=== PATIENT | male | born 1955 | race Caucasian/White ===

== ENCOUNTER 2017-05-27 11:43 | Emergency (ER) | payer OTHER ==
[~2017-05-27] VITALS: Ht 177.8 cm; Wt 81.8 kg
[2017-05-27 11:45] VITALS: BP 118/64; PULSE 70; RESP 16; TEMP 98.5; O2SAT 99
[2017-05-27 15:14] VITALS: BP 137/80; PULSE 58; O2SAT 99
[2017-05-27] MEDS ORDERED: LYRI75CA PO (15:27)
[2017-05-27] MEDS ORDERED: ATOR20TA15 PO (15:27)
[2017-05-27] MEDS ORDERED: CETI10 PO (15:27)
[2017-05-27] MEDS ORDERED: FLUD.1 PO (15:27)
[2017-05-27] MEDS ORDERED: SERT25TA83 PO (15:27)
[2017-05-27] MEDS ORDERED: HUMALOG SQ (15:27)
[2017-05-27] MEDS ORDERED: GEMF600T PO (15:27)
[2017-05-27] MEDS ORDERED: LEVEMIR SQ (15:27)
--- NOTE | 2017-05-27 15:59 | PD ---
HPI Chief Complaint: Numbness/Tingling Time Seen by Provider: 15:42 Travel History International Travel<30 days: No Contact w/Intl Traveler<30days: No Traveled to known affect area: No History of Present Illness HPI This is a 61-year-old male who reports that he recently moved here from [place]. He has a history of left BKA, currently wheelchair dependent. He is complaining of left proximal arm pain and neck pain. This is been going on for several days. He describes it as a sharp shooting pain with paresthesias primarily in the proximal left arm and shoulder region with associated mild neck pain. He does not recall any specific injury but he does note that he falls quite frequently out of his wheelchair and thinks that maybe he fell and injured his arm. He denies any weakness. He denies any headache, chest pain or shortness of breath. His friend who is at bedside was concerned because he noted some bright red blood in his toilet after a bowel movement. He reports that this is been going on for the past 5 days. Denies any black or tarry stools. He has had approximately 5 episodes of loose watery stools on a nightly basis for the past 2 months. He has not been evaluated for this in the past. Denies any recent antibiotic use, abdominal pain, fevers or chills, weight loss, nausea or vomiting. He is not on any blood thinning medications. He has no local primary care physician. No other complaints at this time. PFSH Past Medical History High Cholesterol: Yes Diabetes: Yes Patient Takes Glucophage: No Musculoskeletal: Yes (Lt BKA, neuropathy) Influenza Vaccination: No Past Surgical History Endocrine Surgery: Yes (lt Kidney) Other Surgery: Yes (skin CA Lt arm) Social History Alcohol Use: No (quit) Tobacco Use: Yes (1 ppd) Substance Use: No Allergies-Medications (Allergen,Severity, Reaction): Coded Allergies: No Known Allergies (Unverified , 05/27/17) Reported Meds & Prescriptions Reported Meds & Active Scripts Active Baclofen 10 Mg Tab 10 Mg PO Q8HR 7 Days Reported Sertraline (Sertraline HCl) 25 Mg Tab 25 Mg PO DAILY Cetirizine (Cetirizine HCl) 10 Mg Tab 10 Mg PO DAILY Humalog Inj (Insulin Human Lispro) 1,000 Unit/10 Ml Vial 2-12 Units SQ ACHS Max dose at bedtime:( )units; sugars < 70,(0)units; sugars 150-199,(2)units; sugars 200-249,(4)units; sugars 250-299,(7)units; sugars 300-349,(10)units; sugars more than 349,(12)units. Levemir Inj (Insulin Detemir) 1,000 unit/ 10 ML Vial 35 Units SQ HS Do not mix with any other Insulin. Fludrocortisone (Fludrocortisone Acetate) 0.1 Mg Tab 0.1 Mg PO BID Gemfibrozil 600 Mg Tab Mg PO BIDAC Take 30 minutes prior to breakfast and dinner. Atorvastatin (Atorvastatin Calcium) 20 Mg Tab 20 Mg PO HS Lyrica (Pregabalin) 75 Mg Cap 75 Mg PO BID Review of Systems Except as stated in HPI: all other systems reviewed are Neg Physical Exam Narrative GENERAL: Well-developed well-nourished male in no acute distress SKIN: Warm and dry. HEAD: Atraumatic. Normocephalic. EYES: Pupils equal and round. No scleral icterus. No injection or drainage. ENT: No nasal bleeding or discharge. Mucous membranes pink and moist. NECK: Trachea midline. No JVD. CARDIOVASCULAR: Regular rate and rhythm. No murmur appreciated. RESPIRATORY: No accessory muscle use. Clear to auscultation. Breath sounds equal bilaterally. GASTROINTESTINAL: Abdomen soft, non-tender, nondistended. Hepatic and splenic margins not palpable. Rectal examination reveals no evidence of external hemorrhoid or anal fissure. He has light brown stool which is heme positive. MUSCULOSKELETAL: Left BKA. There is some tenderness to palpation to left proximal arm with no obvious deformity. The patient maintains full range of motion of the upper extremities. There is no neck tenderness. NEUROLOGICAL: Awake and alert. No obvious cranial nerve deficits. Motor grossly within normal limits. Normal speech. PSYCHIATRIC: Appropriate mood and affect; insight and judgment normal. Data Data Last Documented VS Vital Signs Date Time Temp Pulse Resp B/P (MAP) Pulse Ox O2 Delivery O2 Flow Rate FiO2 05/27/17 15:14 58 137/80 (99) 99 Room Air 05/27/17 11:45 98.5 16 Orders Orders Complete Blood Count With Diff (05/27/17 15:53) Comprehensive Metabolic Panel (05/27/17 15:53) Lipase (05/27/17 15:53) Prothrombin Time / Inr (Pt) (05/27/17 15:53) Act Partial Throm Time (Ptt) (05/27/17 15:53) Iv Access Insert/Monitor (05/27/17 15:53) Sodium Chloride 0.9% Flush (Ns Flush) (05/27/17 16:00) Enteric Path (Stool) (05/27/17 15:53) C Diff Toxin Pcr (05/27/17 15:53) Humerus (Min 2vws) (05/27/17 ) Ct Cerv Spine W/O Contrast (05/27/17 ) Ed Discharge Order (05/27/17 18:15) Acetaminophen (Tylenol) (05/27/17 18:15) Labs Laboratory Tests Test 05/27/17 16:45 05/27/17 17:40 White Blood Count 9.3 TH/MM3 Red Blood Count 4.79 MIL/MM3 Hemoglobin 13.9 GM/DL Hematocrit 41.0 % Mean Corpuscular Volume 85.6 FL Mean Corpuscular Hemoglobin 29.0 PG Mean Corpuscular Hemoglobin Concent 33.9 % Red Cell Distribution Width 13.8 % Platelet Count 139 TH/MM3 Mean Platelet Volume 9.7 FL Neutrophils (%) (Auto) 54.7 % Lymphocytes (%) (Auto) 32.6 % Monocytes (%) (Auto) 8.6 % Eosinophils (%) (Auto) 3.4 % Basophils (%) (Auto) 0.7 % Neutrophils # (Auto) 5.1 TH/MM3 Lymphocytes # (Auto) 3.0 TH/MM3 Monocytes # (Auto) 0.8 TH/MM3 Eosinophils # (Auto) 0.3 TH/MM3 Basophils # (Auto) 0.1 TH/MM3 CBC Comment DIFF FINAL Differential Comment Prothrombin Time 11.9 SEC Prothromb Time International Ratio 1.2 RATIO Activated Partial Thromboplast Time 27.1 SEC Blood Urea Nitrogen 15 MG/DL Creatinine 0.92 MG/DL Random Glucose 155 MG/DL Total Protein 7.0 GM/DL Albumin 3.9 GM/DL Calcium Level 8.9 MG/DL Alkaline Phosphatase 82 U/L Aspartate Amino Transf (AST/SGOT) 21 U/L Alanine Aminotransferase (ALT/SGPT) 26 U/L Total Bilirubin 0.4 MG/DL Sodium Level 140 MEQ/L Potassium Level 3.9 MEQ/L Chloride Level 109 MEQ/L Carbon Dioxide Level 23.8 MEQ/L Anion Gap 7 MEQ/L Estimat Glomerular Filtration Rate 84 ML/MIN Lipase 38 U/L MDM Medical Decision Making Medical Screen Exam Complete: Yes Emergency Medical Condition: Yes Medical Record Reviewed: Yes Differential Diagnosis Anal fissure, external hemorrhoid, internal hemorrhoid, colitis, malabsorption, colonic malignancy, upper GI bleed, polyp Cervical radiculopathy, left arm strain, contusion, DVT Narrative Course The patient does have light brown stool which is heme positive. He has tenderness to palpation in the left proximal arm. Plan is for CT of the cervical spine and left humerus. Basic lab work has been ordered. Stool culture/C. difficile PCR have been ordered however the patient's diarrhea seems to be more of a chronic issue as it has been ongoing for 2 months. The patient's imaging studies reveal degenerative changes in the cervical spine with no acute process. Humerus x-ray is normal. CBC is normal with a hemoglobin of 13.9. CMP reveals a glucose of 155 otherwise unremarkable. C. difficile/stool cultures are pending but C. difficile is unlikely. The patient is hemodynamically stable for outpatient follow-up. Recommended follow-up with a truckman given his age, likely for outpatient colonoscopy. Discussed signs and symptoms weren't returning to the emergency room. He will be discharged with a short course of baclofen to help with his neck pain and radicular symptoms. Diagnosis Primary Impression: Rectal bleeding Additional Impression: Cervical radiculopathy Additional Instructions: Medication as needed. Do not drive or drink alcohol when taking this medication. Follow-up with a truckman to discuss possible outpatient colonoscopy. Return for any acutely new or worsening symptoms. Med/Other Pt SpecificInfo: Prescription(s) given Scripts Baclofen (Baclofen) 10 Mg Tab 10 MG PO Q8HR for 7 Days, TAB 0 Refills Prov: Sandeep Rios MD 05/27/17 Disposition: 01 DISCHARGE HOME Condition: Stable Bradley Lambert May 27, 2017 15:59
[2017-05-27] MEDS ORDERED: SODIUM CHLORIDE 0.9% FLUSH 10 ML FLUSH IV FLUSH PRN (16:00)
--- NOTE | 2017-05-27 16:41 | RADRPT ---
EXAM DATE/TIME: 05/27/2017 16:07 [facility] COMPARISON: No previous studies available for comparison. INDICATIONS : Patient fell 1 week ago landing on left humerus. Left humerus pain and limited ROM. MEDICAL HISTORY : None. SURGICAL HISTORY : None. ENCOUNTER: Initial ACUITY: 1 week PAIN SCORE: 7/10 LOCATION: Left Humerus FINDINGS: Two view examination of the left humerus demonstrates no evidence of fracture or dislocation. Bony m ineralization is normal. The soft tissue structures are intact. Minimal degenerative changes are se en on the olecranon. CONCLUSION: Negative for fracture. Raghu Palmer MD FACR on May 27, 2017 at 16:37 Board Certified Radiologist. This report was verified electronically.
--- NOTE | 2017-05-27 16:53 | RADRPT ---
EXAM DATE/TIME: 05/27/2017 16:11 [facility] COMPARISON: No previous studies available for comparison. INDICATIONS : Left arm numbness, arm pain for 2 days. Recent falls. RADIATION DOSE: 24.75 CTDIvol (mGy) MEDICAL HISTORY : Below the kness left anmutation,left arm skin cancer. SURGICAL HISTORY : Kidney ENCOUNTER: Initial ACUITY: 2 days PAIN SCALE: 5/10 LOCATION: Bilateral neck TECHNIQUE: Volumetric scanning of the cervical spine was performed. Multiplanar reconstructions in the sagittal, coronal and oblique axial planes were performed. Using automated exposure control and adjustment o f the mA and/or kV according to patient size, radiation dose was kept as low as reasonably achievable to obtain optimal diagnostic quality images. DICOM format image data is available electronically f or review and comparison. FINDINGS: VERTEBRAE: Normal vertebral body height. ALIGNMENT: No evidence of subluxation. C2-C3: Anterior osteophytes. The bony spinal canal is normal in size. No evidence of disc bulge or herniati on. The neural foramina are bilaterally patent. C3-C4: Central posterior disc protrusion and right facet arthropathy. No significant central canal or neural foraminal stenosis. C4-C5: Diffuse disc bulge and uncovertebral osteophytes with bilateral facet arthropathy. Central canal narr owing to approximately 8 mm. No significant neural foraminal stenosis. C5-C6: Moderate disc space narrowing with vacuum disc phenomenon. Bilateral facet arthropathy. Posterior dis c osteophyte complex eccentric to the right. Effacement of the anterior right lateral recess with alex tral canal narrowing to approximately 9 mm. Moderate to severe right neural foraminal stenosis second margot to osteophytes. C6-C7: Moderate disc space narrowing with vacuum disc phenomenon. Posterior disc osteophytes eccentric to th e right. Central canal measures 8 mm. Moderate to severe right neural foraminal stenosis. C7-T1: The bony spinal canal is normal in size. No evidence of disc bulge or herniation. The neural forami na are bilaterally patent. CONCLUSION: 1. No acute fracture or subluxation. 2. Multilevel degenerative spondylosis of the cervical spine resulting in multilevel moderate central canal stenosis. 3. Variable neural foraminal stenosis most prominently at C5-7 with moderate to severe right-sided ne ural foraminal stenosis 4. Please see above for detailed description of each level. Malachi Holbrook MD on May 27, 2017 at 16:38 Board Certified Radiologist. This report was verified electronically.
[2017-05-27 17:20] LABS: AUTOMATED NEUTROPHIL # 5.1 TH/MM3 (1.8-7.7); BASOPHIL # 0.1 TH/MM3 (0-0.2); BASOPHIL % 0.7 % (0.0-2.0); EOSINOPHIL # 0.3 TH/MM3 (0-0.4); EOSINOPHIL % 3.4 % (0.0-4.0); HEMOGLOBIN 13.9 GM/DL (13.0-17.0); LYMPH % 32.6 % (9.0-44.0); MEAN CELL VOLUME 85.6 FL (80.0-100.0); MEAN CORPUSCULAR HGB CONC 33.9 % (32.0-36.0); MEAN PLATELET VOLUME 9.7 FL (7.0-11.0); MONO % 8.6 % (0.0-8.0); MONOCYTE # 0.8 TH/MM3 (0-0.9); NEUT % 54.7 % (16.0-70.0); PLATELET COUNT 139 TH/MM3 (150-450); RED BLOOD COUNT 4.79 MIL/MM3 (4.50-5.90); RED CELL DISTRIBUTION WIDTH 13.8 % (11.6-17.2); WHITE BLOOD COUNT 9.3 TH/MM3 (4.0-11.0)
[2017-05-27 17:25] LABS: INTERNATIONAL NORMALIZED RATIO 1.2 RATIO; PROTHROMBIN TIME - PATIENT 11.9 SEC (9.8-11.6)
[2017-05-27 17:40] LABS: ALBUMIN 3.9 GM/DL (3.4-5.0); AST (GOT) 21 U/L (15-37); BICARBONATE 23.8 MEQ/L (21.0-32.0); BLOOD UREA NITROGEN 15 MG/DL (7-18); CALCIUM 8.9 MG/DL (8.5-10.1); CHLORIDE 109 MEQ/L (98-107); CREATININE 0.92 MG/DL (0.60-1.30); GLOMERULAR FILTRATION RATE 84 ML/MIN (>89); GLUCOSE,RANDOM 155 MG/DL (74-106); LIPASE 38 U/L (73-393); SODIUM (NA) 140 MEQ/L (136-145)
[2017-05-27 17:43] LABS: ALKALINE PHOSPHATASE 82 U/L (45-117); ALT (GPT) 26 U/L (12-78); TOTAL BILIRUBIN ADULT 0.4 MG/DL (0.2-1.0)
[2017-05-27] MEDS ORDERED: ACETAMINOPHEN 325 MG TAB PO ONE (18:15)
[2017-05-27] MEDS ORDERED: BACL10TA PO (18:16)
== END 2017-05-27 19:12 | disposition home or self-care (01) ==
LOC: NEPD 11:43
DX: K62.5 Hemorrhage of anus and rectum (principal); M54.12 Radiculopathy, cervical region; E78.00 Pure hypercholesterolemia, unspecified; E11.9 Type 2 diabetes mellitus without complications; F17.200 Nicotine dependence, unspecified, uncomplicated; Z79.4 Long term (current) use of insulin; Z89.512 Acquired absence of left leg below knee; Z99.3 Dependence on wheelchair
CPT/HCPCS: 72125; 73060; 80053; 83690; 85025; 85610; 85730; 87493; 87506; 99285